=== PATIENT | male | born 1945 | race Caucasian/White ===

== ENCOUNTER → 2017-06-19 | Outpatient (CLI) | payer OTHER ==
--- NOTE | 2017-06-19 08:32 | RAD ---
HISTORY: Right hand pain no history of trauma given. Study: Right hand: Three views Comparison: None Findings: Carpal alignment is normal. Mild degenerative changes noted in the scaphotrapezium articulation. Mo derate to moderately severe is noted in the 1st carpal metacarpal joint with [id number] between the bases of the 1st and 2nd metacarpals. Mild degenerative changes noted in the 1st metacarpophala ngeal joint with minimal in the interphalangeal joint of the thumb. Minimal to mild degenerative violeta nges present within several of the interphalangeal joints. No appreciable erosive changes are presen t that would suggest rheumatoid arthritis. No lytic or blastic lesions are identified. IMPRESSION: 1. Degenerative changes right hand described above, felt to be on basis of osteoarthritis. 2. No acute bony abnormalities are identified. Reported By:
== END ==
LOC: RAD 08:02
PROVIDERS: ATTEND Orthopaedic Surgery
DX: M18.11 Unilateral primary osteoarthritis of first carpometacarpal joint, right hand (principal)
CPT/HCPCS: 73130